=== PATIENT | female | born 1970 | race Two or more races ===

== ENCOUNTER 2016-06-30 19:20 | Emergency (ER) | payer MEDICAID, OTHER ==
[~2016-06-30] VITALS: Ht 167.6 cm; Wt 61.2 kg
[~2016-06-30 19:20] MED LIST: BENTYL10 MG ORAL; IBUPROFEN600 MG ORAL; MACROBID 100 M100 MG PO; NKM; [UNRECOGNIZED DRUG - OTHER] PO
[2016-06-30 19:44] VITALS: BP 144/85
[2016-06-30 20:06] LABS: APPEARANCE,URINE CLEAR; KETONES,URINE NEGATIVE (NEGATIVE); LEUKOCYTE ESTERASE ,URINE NEGATIVE (NEGATIVE); NITRITE,URINE NEGATIVE (NEGATIVE); PH,URINE 7 (4.5-8.0); PROTEIN,URINE NEGATIVE (NEGATIVE); UROBILINOGEN,URINE NORMAL MG/DL (0.0-1.0)
[2016-06-30 20:24] LABS: BASOPHILS % (AUTO) 1.1 % (0.0-2.0); LYMPHOCYTES % (AUTO) 16.5 % (20.0-45.0); MEAN CORPUSCULAR HGB CONC 34.3 G/DL (32.0-36.0); MEAN CORPUSCULAR VOLUME 90 FL (80-99); MEAN PLATELET VOLUME 6.5 FL (6.5-10.1); MONOCYTES % (AUTO) 5.5 % (1.0-10.0); NEUTROPHILS % (AUTO) 75.9 % (45.0-75.0); PLATELET COUNT 267 K/UL (150-450); RED BLOOD COUNT 4.43 M/UL (4.20-5.40); RED CELL DISTRIBUTION WIDTH 11.7 % (11.6-14.8); WHITE BLOOD COUNT 8.8 K/UL (4.8-10.8)
--- NOTE | 2016-06-30 20:24 | Emergency Room Report ---
History of Present Illness General Chief Complaint: Abdominal Pain Source: Patient Present Illness HPI 46-year-old female presents emergency department complaining of bright red blood per right thumb times one day. Patient states blood is present on the toilet paper and only after having bowel movements. Patient reports mild discomfort with bowel movements. Patient also states that she has had right- sided abdominal pain that radiates to the right flank which is dull and aching in character that she rates as 9/10 in severity since May. Patient also reports dyspareunia, vaginal burning, dysuria and frequency. Patient also reports intermittent fevers and chills. Patient states her symptoms onset or after her partner used a vibrator rectally, then only rinsed it with water before inserting it actually. She states she has had increase in vaginal tenderness and just peroneus since. Patient denies vaginal discharge. Patient does state she has been having intermittent spotting since her period last week. Patient also states that her period that she had last week was unusually heavy for her and she feels as though she lost a lot of blood. She denies nausea, vomiting, diarrhea. Patient reports long-standing history of intermittent constipation which she attempts to alleviate with increased fiber intake . She denies black tarry stools . denies , pt. is . Denies CP, Palpitations, LOC, AMS, dizziness, Changes in Vision, Sensation, paresthesias, or a sudden severe headache. Allergies: Uncoded Allergies: general anesthesia (Adverse Reaction, Unknown, 10/06/13) general anethesia (Adverse Reaction, Unknown, 10/06/13) Patient History Past Medical History: see triage record Past Surgical History: none Pertinent Family History: none Last Menstrual Period: 2 weeks ago Now: No : 2 Para: 0 Reviewed Nursing Documentation: PMH: Agreed, PSxH: Agreed Nursing Documentation-PMH Past Medical History: No History, Except For Review of Systems All Other Systems: negative except mentioned in HPI Physical Exam Vital Signs Date Time Temp Pulse Resp B/P Pulse Ox O2 Delivery O2 Flow Rate FiO2 06/30/16 19:29 98.4 81 16 144/85 100 Room Air Sp02 EP Interpretation: reviewed, normal General Appearance: no apparent distress, alert, GCS 15, non-toxic Head: normocephalic, atraumatic Eyes: bilateral eye PERRL, bilateral eye normal inspection ENT: hearing grossly normal, normal pharynx, no angioedema, normal voice Neck: full range of motion, supple/symm/no masses Respiratory: lungs clear, normal breath sounds, speaking full sentences Cardiovascular #1: regular rate, rhythm, no edema Gastrointestinal: normal bowel sounds, non tender, soft, no guarding, no rebound, other - Negative [place] signs, Negative MacBurney's sign, Negative Rosvigns Sign, Negative Psoas, No Peritoneal signs. Rectal: heme negative stool, hemorrhoids - hemorrhoids, and small rectal tear 0.2cm just proximal to small non-thrombosed hemorrhoid in the 9 o 'clock position Genitourinary: normal inspection, adnexa normal, cervix normal, os closed, CVA tenderness (R), other - no CMT, tenderness along the vaginal wall, mild milky white d/c noted. Musculoskeletal: back normal, gait/station normal, normal range of motion, non- tender, no calf tenderness Neurologic: alert, oriented x3, responsive, motor strength/tone normal, sensory intact, speech normal Psychiatric: judgement/insight normal, memory normal, mood/affect normal Skin: normal color, no rash, warm/dry, well hydrated Medical Decision Making PA Attestation Dr. Basilio is my supervising Physician whom patient management has been discussed with. Diagnostic Impression: Primary Impression: Acute hemorrhoid Additional Impressions: Vaginal discomfort Acute anal fissure ER Course 46-year-old female presents emergency department complaining of bright red blood per right thumb times one day. Patient states blood is present on the toilet paper and only after having bowel movements. Patient reports mild discomfort with bowel movements. Patient also states that she has had right- sided abdominal pain that radiates to the right flank which is dull and aching in character that she rates as 9/10 in severity since May. Patient also reports dyspareunia, vaginal burning, dysuria and frequency. Patient also reports intermittent fevers and chills. Patient states her symptoms onset or after her partner used a vibrator rectally, then only rinsed it with water before inserting it actually. She states she has had increase in vaginal tenderness and just peroneus since. Patient denies vaginal discharge. Patient does state she has been having intermittent spotting since her period last week. Patient also states that her period that she had last week was unusually heavy for her and she feels as though she lost a lot of blood. She denies nausea, vomiting, diarrhea. Patient reports long-standing history of intermittent constipation which she attempts to alleviate with increased fiber intake . She denies black tarry stools Ddx considered but are not limited to constipation , anal fissure, perianal abscess, rectal wall tear, thrombosed hemorrhoid, hemorrhoid. PID, BV, G&C, UTI , pyelonephritis, gallbladder/stone pathology or appendicitis. Vital signs: are WNL, pt. is afebrile H&PE are most consistent with hemorrhoids, and small rectal tear 0.2cm just proximal to small non-thrombosed hemorrhoid in the 9 o 'clock position , no appreciable abdominal ttp, right CVA tenderness noted. no LAD, bowel sounds are normo active. ORDERS: -CBC: Unremarkable -CMP: unremarkable other than mildly decreased chloride. -LIPASE: WNL -Amylase: WNl -UA: Unremarkable few bacteria, some epithelial cells no wbc's no leukocytes more consistent with contamination -Urine Hcg: negative -G & C : pending - [place] Prep: No trich, No Clue, No yeast -Guiac: Negative ED INTERVENTIONS: -500cc NS - Discussed the patient's self care interventions for hemorrhoids I do not suspect an emergent condition at this time. with current presentation pt. is stable for close outpatient follow up. -D/w pt. the results of her laboratory work. pt. states she has an obgyn appt. this saturday, and will follow up with her obgyn. d/w pt. to return to ED with any worsening or new symptoms. DISCHARGE: At this time pt. is stable for d/c to home. Will provide printed patient care instructions, and any necessary prescriptions. Care plan and follow up instructions have been discussed with the patient prior to discharge. Labs Test 06/30/16 19:40 06/30/16 20:00 Urine Color Pale yellow Urine Appearance Clear Urine pH 7 (4.5-8.0) Urine Specific [place] 1.015 (1.005-1.035) Urine Protein Negative (NEGATIVE) Urine Glucose (UA) Negative (NEGATIVE) Urine Ketones Negative (NEGATIVE) Urine Occult Blood 1+ (NEGATIVE) Urine Nitrite Negative (NEGATIVE) Urine Bilirubin Negative (NEGATIVE) Urine Urobilinogen Normal MG/DL (0.0-1.0) Urine Leukocyte Esterase Negative (NEGATIVE) Urine RBC 0 /HPF (0 - 2) Urine WBC 0-2 /HPF (0 - 2) Urine Squamous Epithelial Cells Few /LPF (NONE/OCC) Urine Bacteria Occasional /HPF (NONE) Urine HCG, Qualitative Negative White Blood Count 8.8 K/UL (4.8-10.8) Red Blood Count 4.43 M/UL (4.20-5.40) Hemoglobin 13.7 G/DL (12.0-16.0) Hematocrit 40.0 % (37.0-47.0) Mean Corpuscular Volume 90 FL (80-99) Mean Corpuscular Hemoglobin 31.0 PG (27.0-31.0) Mean Corpuscular Hemoglobin Concent 34.3 G/DL (32.0-36.0) Red Cell Distribution Width 11.7 % (11.6-14.8) Platelet Count 267 K/UL (150-450) Mean Platelet Volume 6.5 FL (6.5-10.1) Neutrophils (%) (Auto) 75.9 % (45.0-75.0) Lymphocytes (%) (Auto) 16.5 % (20.0-45.0) Monocytes (%) (Auto) 5.5 % (1.0-10.0) Eosinophils (%) (Auto) 1.0 % (0.0-3.0) Basophils (%) (Auto) 1.1 % (0.0-2.0) Sodium Level 140 mEQ/L (135-145) Potassium Level 3.7 mEQ/L (3.4-4.9) Chloride Level 97 mEQ/L (98-107) Carbon Dioxide Level 28 mEQ/L (20-30) Anion Gap 15 (5-15) Blood Urea Nitrogen 9 mg/dL (7-23) Creatinine 0.8 mg/dL (0.5-0.9) Estimat Glomerular Filtration Rate > 60 mL/min (>60) Glucose Level 84 mg/dL (74-106) Calcium Level 9.2 mg/dL (8.6-10.2) Total Bilirubin 0.4 mg/dL (0.0-1.2) Aspartate Amino Transf (AST/SGOT) 17 U/L (5-40) Alanine Aminotransferase (ALT/SGPT) 17 U/L (3-33) Alkaline Phosphatase 47 U/L (35-104) Total Protein 7.3 g/dL (6.6-8.7) Albumin 4.6 g/dL (3.5-5.2) Globulin 2.7 g/dL Albumin/Globulin Ratio 1.7 (1.0-2.7) Amylase Level 54 U/L (10-110) Lipase 47 U/L (< 60) Last Vital Signs Date Time Temp Pulse Resp B/P Pulse Ox O2 Delivery O2 Flow Rate FiO2 06/30/16 19:29 98.4 81 16 144/85 100 Room Air Disposition: HOME, SELF-CARE Condition: Stable Scripts Hydrocortisone Hc 2.5% Cream (ANUSOL-HC 2.5% CREAM) Y Cr 1 APPLIC RC BID, #30 GM Prov: Lashon Barajas 06/30/16 Patient Instructions: Anal Fissure, Adult, [id number], Abdominal Pain, Adult Additional Instructions: Take medications as directed. Follow up with PCP in 3-5 days * Follow up with your OBGYN on Saturday, may require US imaging to further evaluate your pelvic discomfort. Return sooner to ED if new symptoms occur, or current symptoms become worse. - Please note that this Emergency Department Report was dictated using [email or web address]lens matcher technology software, occasionally this can lead to erroneous entry secondary to interpretation by the dictation equipment. Lashon Barajas Jun 30, 2016 20:23
[2016-06-30 20:26] LABS: BACTERIA,URINE OCCASIONAL /HPF; RBC,URINE 0 /HPF (0 - 2); SQUAMOUS EPITHELIAL CELL,UR FEW /LPF (NONE/OCC); WBC,URINE 0-2 /HPF (0 - 2)
[2016-06-30 20:43] LABS: ALANINE AMINOTRANSFERASE 17 U/L (3-33); ALBUMIN/GLOBULIN RATIO 1.7 (1.0-2.7); AMYLASE 54 U/L (10-110); ANION GAP 15 (5-15); ASPARTATE AMINO TRANSFERASE 17 U/L (5-40); CALCIUM 9.2 mg/dL (8.6-10.2); CARBON DIOXIDE 28 mEQ/L (20-30); CHLORIDE 97 mEQ/L (98-107); CREATININE 0.8 mg/dL (0.5-0.9); GLOMERULAR FILTRATION RATE > 60 mL/min (>60); HEMOLYSIS 3; LIPASE 47 U/L (< 60); POTASSIUM 3.7 mEQ/L (3.4-4.9); SODIUM 140 mEQ/L (135-145); TOTAL PROTEIN 7.3 g/dL (6.6-8.7)
[2016-06-30 21:00] VITALS: BP 121/80
[2016-06-30] MEDS ORDERED: ANUSOL-HC30 GM RC (21:46)
[2016-06-30 21:52] VITALS: BP 121/80
== END 2016-06-30 21:52 | disposition home or self-care (01) ==
LOC: EMR 20:14
DX: K64.8 Other hemorrhoids (principal); K60.0 Acute anal fissure; R10.2 Pelvic and perineal pain
CPT/HCPCS: 36415; 80053; 81003; 81025; 82150; 83690; 85025; 87210; 96360